=== PATIENT | male | born 1955 | race Caucasian/White ===

== ENCOUNTER 2023-08-24 07:00 | Outpatient (NON) | payer MEDICARE, SELFPAY | END 2023-08-24 07:01 | disposition home or self-care (01) | PROVIDERS: Visit Provider Internal Medicine Gastroenterology | DX: D12.2 Benign neoplasm of ascending colon (principal); D12.5 Benign neoplasm of sigmoid colon | CPT/HCPCS: 88305 ==

== ENCOUNTER 2023-08-24 08:33 | Day surgery (SDC) | payer MEDICARE, SELFPAY ==
[2023-08-05 13:23] VITALS: BMI 30.2
[2023-08-24 09:49] VITALS: BP 126/75; PULSE 94; RESP 18; TEMP 37.1; O2SAT 100; BMI 31.0
--- NOTE | 2023-08-24 10:13 | P.PNAN_ITS ---
Anes - Initial Pre Proc Eval Procedure: Operation Date: 08/24/23 11:00 Proposed Procedures p Diagnostic Colonoscopy - Hilario Montgomery MD Date/Time: 08/24/23 10:13 Surgeon: Hilario Montgomery MD Pre Op Diagnosis: Person History of Colonic Polyps Patient Data Age: 68 Gender: M Height: 1.73 m Weight: 92.7 kg Last Vital Signs Temp 37.1 C 08/24/23 09:49 Pulse 94 08/24/23 09:49 Resp 18 08/24/23 09:49 BP 126/75 08/24/23 09:49 Pulse Ox 100 08/24/23 09:49 O2 Del Method Room Air 08/24/23 09:49 Allergies Allergy/AdvReac Type Severity Reaction Status Date / Time No Known Allergies Allergy Verified 08/10/23 10:51 Home Medications Medication Instructions Recorded Confirmed Type amlodipine 10 mg tablet (Norvasc) 10 mg PO DAILY 08/08/23 08/24/23 History hydrochlorothiazide 25 mg tablet 25 mg PO DAILY 08/08/23 08/24/23 History lisinopril 10 mg tablet 10 mg PO DAILY 08/08/23 08/24/23 History allopurinol 100 mg tablet 100 mg PO DAILY 08/10/23 08/24/23 History multivitamin (Daily Multi-Vitamin 1 tablet PO DAILY 08/10/23 08/24/23 History tablet) omeprazole 20 mg capsule,delayed 20 mg PO DAILY 08/10/23 08/24/23 History release Patient hx anesthesia problems: none Family hx anesthesia problems: none Results Review: All pre-operative results and documents have been reviewed as part of the pre- operative evaluation. [facility] Past Medical History Medical History (Updated 08/24/23 @ 10:13 by Adam Boyd MD) HTN (hypertension) Obesity Surgical History Surgical History (Updated 08/24/23 @ 10:13 by Adam Boyd MD) H/O prostatectomy Social History Social History Smoking status: Never smoker Alcohol intake: current Alcohol use details: 12 pack of beer and one bottle of wine weekly Substance use type: does not use Living arrangements: with family Spiritual care concerns: No Anes - Eval Final PreProcedure Day of Procedure 08/24/23 10:13 Patient weight: obese Heart: regular rate and rhythm Lungs: clear to auscultation Airway: Mallampati scale class II Neurological: alert and oriented Last oral intake: >/= 8 hours ASA classification: II Emergent: no Anesthetic plan: proceed Anesthesia type and monitoring: general GIVS and standard monitoring Results Review: All pre-operative results and documents have been reviewed as part of the pre- operative evaluation. Informed Consent: The patient's anesthetic plan and its attendant risks and benefits were discussed with the patient/family/POA. Questions were solicited and answers provided to the satisfaction of the patient/family/POA.
[2023-08-24] MEDS: LACTATED RINGERS 1,000 ML 150 ML IV CONT (10:23)
--- NOTE | 2023-08-24 10:24 | PM.HPGS ---
History of Present Illness History of Present Illness Consent: Risks, benefits, and alternatives have been discussed and questions answered. Patient agrees to proceed with procedure. Chief complaint: Person History of Colonic Polyps Narrative: Saqib Fonseca is a 68 year old male presents for screening colonoscopy. Patient's current weight appetite and bowel movements are normal. Patient denies abdominal pain. He has had no bleeding. Family history is significant that his father had colon cancer. Patient has had colon polyps on previous colonoscopy 3 years ago and several prior to that. Review of Systems Review of Systems: Review of systems noncontributory. PMFSH Past Medical History Medical History (Updated 08/24/23 @ 10:26 by Hilario Montgomery MD) HTN (hypertension) Obesity Surgical History Surgical History (Updated 08/24/23 @ 10:13 by Adam Boyd MD) H/O prostatectomy Social History Social History Smoking status: Never smoker Alcohol intake: current Alcohol use details: 12 pack of beer and one bottle of wine weekly Substance use type: does not use Living arrangements: with family Spiritual care concerns: No Meds Home Medications and Allergies Home Medications Medication Instructions Recorded Confirmed Type amlodipine 10 mg tablet (Norvasc) 10 mg PO DAILY 08/08/23 08/24/23 History hydrochlorothiazide 25 mg tablet 25 mg PO DAILY 08/08/23 08/24/23 History lisinopril 10 mg tablet 10 mg PO DAILY 08/08/23 08/24/23 History allopurinol 100 mg tablet 100 mg PO DAILY 08/10/23 08/24/23 History multivitamin (Daily Multi-Vitamin 1 tablet PO DAILY 08/10/23 08/24/23 History tablet) omeprazole 20 mg capsule,delayed 20 mg PO DAILY 08/10/23 08/24/23 History release Allergies Allergy/AdvReac Type Severity Reaction Status Date / Time No Known Allergies Allergy Verified 08/10/23 10:51 Vital Signs Vital Signs - 24 hr 08/24/23 09:49 Temperature 98.8 F Pulse Rate 94 Respiratory Rate 18 Blood Pressure 126/75 Pulse Oximetry 100 Oxygen Delivery Room Air Exam Narrative: Physical exam reveals patient to be alert. Vital signs stable. HEENT exam is unremarkable. Patient is anicteric. Auscultation and to percussion. Heart extra sounds. Abdomen bowel sounds are present soft nontender with no organomegaly external rectal exam is normal. Assessment and Plan Assessment and plan (1) Family history of colon cancer in father: Code(s): Z80.0 - Family history of malignant neoplasm of digestive organs Status: Acute Assessment and Plan: Patient's father had colon cancer. Plan for surveillance colonoscopy at interval. (2) History of colon polyps: Code(s): Z86.010 - Personal history of colonic polyps Status: Acute Assessment and Plan: Patient has had colon polyps on previous exams. Most recently 3 years ago. Follow-up colonoscopy advised at 3-5 year intervals.
[2023-08-24 11:25] VITALS: BP 87/65; PULSE 88; RESP 18; O2SAT 94
[2023-08-24 11:35] VITALS: BP 104/74; PULSE 87; RESP 18; O2SAT 94
--- NOTE | 2023-08-24 11:41 | WPDANESPN ---
Anes - Prog Note Post-Op Date/Time: 08/24/23 11:41 Cardiovascular status: normal Respiratory status: normal Airway patency: baseline Mental status: baseline Vital Signs: Last Vital Signs Temp 37.1 C 08/24/23 09:49 Pulse 87 08/24/23 11:35 Resp 18 08/24/23 11:35 BP 104/74 08/24/23 11:35 Pulse Ox 94 08/24/23 11:35 O2 Del Method Room Air 08/24/23 11:35 Pain Score (VAS): 0/10 I/O: Intake & Output 08/23/23 08/24/23 08/24/23 23:59 07:59 15:59 Intake Total 700 Balance 700 Patient Feedback: Patient satisfied with anesthetic care.
[2023-08-24 11:45] VITALS: BP 113/74; PULSE 90; RESP 18; O2SAT 98
== END 2023-08-24 12:00 | disposition home or self-care (01) ==
PROVIDERS: Visit Provider Internal Medicine Gastroenterology
PROC: 0DJD8ZZ Inspection of Lower Intestinal Tract, Via Natural or Artificial Opening Endoscopic (ICD-10-PCS; CPT 45378; principal; 2023-08-24 11:00)
DX: Z86.010 Personal history of colon polyps (principal); D12.2 Benign neoplasm of ascending colon; D12.5 Benign neoplasm of sigmoid colon; K64.8 Other hemorrhoids
CPT/HCPCS: 45385